=== PATIENT | male | born 1995 | race Caucasian/White ===

== ENCOUNTER 2016-07-05 13:32 | Emergency (ER) | payer MEDICAID ==
[~2016-07-05] VITALS: Ht 167.6 cm; Wt 63.5 kg
[2016-07-05 13:37] VITALS: BP_SYST 118
[2016-07-05] MEDS ORDERED: IBUPROFEN 800 MG TABLET PO ONE (14:15)
[2016-07-05 15:35] VITALS: BP_SYST 106
== END 2016-07-05 15:35 | disposition home or self-care (01) ==
LOC: SED 13:32
DX: N62 Hypertrophy of breast (principal)
CPT/HCPCS: 76642; 99284

== ENCOUNTER 2016-07-17 12:01 | Emergency (ER) | payer MEDICAID ==
[~2016-07-17] VITALS: Ht 167.6 cm; Wt 63.5 kg
[2016-07-17 12:05] VITALS: BP_SYST 118
--- NOTE | 2016-07-17 12:05 | NUR ---
Patient triaged and placed in waiting room. VSS and patient appears in no acute distress at this time. Accompanied by SELF, awaiting available bed, and MD notified of need for MSE.
--- NOTE | 2016-07-17 13:20 | NUR ---
BROUGHT BACK TO BED #2 AND REPORT GIVEN TO MAHNAZ
--- NOTE | 2016-07-17 13:25 | NUR ---
Pt brought by self, A&Ox4, pt c/o productive cough, green sputum and congestion, skin pink and warm, cap refill <3, VS WNL,
--- NOTE | 2016-07-17 13:25 | NUR ---
Dr Mendez at bedside examining patient
[2016-07-17 15:00] VITALS: BP_SYST 118
--- NOTE | 2016-07-17 15:00 | NUR ---
Patient given written and verbal discharge instructions and verbalizes understanding. ER MD discussed with patient the results and treatment provided. Patient in stable condition. ID arm band removed. IV catheter removed intact and dressing applied, no active bleeding. Rx of Albterol, Mucinex and Azythromycin given. Patient educated on pain management and to follow up with PMD. Pain Scale 0/10. Opportunity for questions provided and answered.
== END 2016-07-17 15:00 | disposition home or self-care (01) ==
LOC: SED 12:01
DX: J20.9 Acute bronchitis, unspecified (principal)
CPT/HCPCS: 71020-TC; 99284

== ENCOUNTER 2017-01-01 18:06 | Inpatient (IN) | payer MEDICAID ==
[~2017-01-01] VITALS: Ht 167.6 cm; Wt 62.6 kg
[2017-01-01 18:09] VITALS: BP_SYST 114
[2017-01-01 18:52] LABS: BASOPHILS % (AUTO) 1.1 % (0.0-2.0); EOSINOPHILS % (AUTO) 1.1 % (0.0-4.0); HEMATOCRIT 46.4 % (36-54); HEMOGLOBIN 15.2 g/dL (14.0-18.0); LYMPHOCYTES % (AUTO) 52.9 % (20.5-51.5); MEAN CORPUSCULAR HEMOGLOBIN 28 pg (27-31); MEAN CORPUSCULAR HGB CONC 33 % (32-36); MEAN CORPUSCULAR VOLUME 86 fL (79.0-98.0); MONOCYTES # (AUTO) 0.4 K/uL (0.0-1.0); MONOCYTES % (AUTO) 10.3 % (1.7-9.3); NEUTROPHILS # (AUTO) 1.3 K/uL (1.8-7.7); NEUTROPHILS % (AUTO) 34.6 % (40.0-70.0); PLATELET COUNT (AUTO) 176 K/uL (130-430); RED BLOOD CELL COUNT(AUTO) 5.37 MIL/uL (4.2-6.2); RED CELL DISTRIBUTION WIDTH 12.4 % (9.0-15.0); WHITE BLOOD COUNT (AUTO) 3.7 K/uL (4.8-10.8)
[2017-01-01 19:11] LABS: CALCIUM 9.7 mg/dL (8.4-11.0); CREATININE 1.12 mg/dL (0.55-1.30); POTASSIUM 4.1 mmol/L (3.5-5.1)
[2017-01-01 19:12] LABS: INR 1.1 (0.80-1.20); PROTHROMBIN TIME 11.3 SECS (9.5-12.5)
[2017-01-01 19:23] LABS: ALBUMIN 4.4 g/dL (3.4-4.8); TOTAL BILIRUBIN 0.9 mg/dL (0.0-1.0)
[2017-01-01] MEDS ORDERED: NAPROXEN 250 MG TABLET PO ONE (21:15)
[2017-01-01 21:37] LABS: BILIRUBIN,URINE NEGATIVE (NEGATIVE); BLOOD, URINE NEGATIVE (NEGATIVE); CLARITY/URINE CLEAR (CLEAR); COLOR,URINE YELLOW (YELLOW); GLUCOSE,URINE NEGATIVE (NEGATIVE); KETONES,URINE NEGATIVE (NEGATIVE); LEUKOCYTE ESTERASE ,URINE NEGATIVE (NEGATIVE); NITRITE, URINE NEGATIVE (NEGATIVE); PROTEIN URINE NEGATIVE (NEGATIVE); UROBILINOGEN,URINE 0.2 (0.2-1.0)
[2017-01-01] MEDS ORDERED: NAPROXEN 250 MG TABLET ONE (21:57)
[2017-01-02] VITALS (7 sets, daily range): BP systolic 100–121
[2017-01-02] MEDS ORDERED: KETOROLAC TROMETHAMINE 30 MG VIAL IVP PRN (00:30)
[2017-01-02] MEDS ORDERED: MORPHINE 2 MG/ML INJ. SYRINGE IVP PRN (05:00)
[2017-01-02] MEDS ORDERED: ACETAMINOPHEN 325 MG TABLET PO PRN (05:00)
[2017-01-02] MEDS ORDERED: KETOROLAC TROMETHAMINE 30 MG VIAL IM PRN (08:45)
[2017-01-02] MEDS ORDERED: ASPIRIN 325 MG TABLET PO SCH (09:00)
[2017-01-02 12:17] LABS: BARBITURATE, URINE NEGATIVE (NEG <=200); BENZODIAZEPINE, URINE NEGATIVE (NEG <=150); CANNABINOID, URINE POSITIVE (NEG <=50); COCAINE, URINE NEGATIVE (NEG <=150); METHAMPHETAMINES SCREEN,URINE NEGATIVE (NEG <=500); OPIATE, URINE NEGATIVE (NEG <=100); PHENCYCLIDINE SCREEN,URINE NEGATIVE (NEG <=25); UR TRICYCLIC ANTIDEPRESSANTS NEGATIVE (NEG <=300); URINE AMPHETAMINE NEGATIVE (NEG <=500); URINE METHADONE NEGATIVE (NEG <=200); URINE OXYCODONE SCREEN NEGATIVE (NEG <=100); URINE PROPOXYPHENE SCREEN NEGATIVE (NEG <=300)
== END 2017-01-02 13:47 | disposition home or self-care (01) | DRG 203 ==
LOC: SED 18:06 → STU 23:33
PROVIDERS: ADMIT Internal Medicine Hospice and Palliative Medicine; ATTEND Internal Medicine Hospice and Palliative Medicine
DX: R07.89 Other chest pain (principal); I30.9 Acute pericarditis, unspecified; F12.90 Cannabis use, unspecified, uncomplicated
CPT/HCPCS: 36415; 71010; 80053; 80307; 81003; 83880; 84484; 85025; 85379; 85610-TC; 85730-TC; 93005; 93306; 99285; J1885